=== PATIENT | male | born 1970 | race Caucasian/White ===

== ENCOUNTER 2016-12-23 08:43 | Emergency (ER) | payer OTHER ==
[~2016-12-23] VITALS: Ht 185.4 cm; Wt 79.5 kg
[2016-12-23 08:45] VITALS: BP 116/76; PULSE 95; RESP 14; O2SAT 94
[2016-12-23] MEDS ORDERED: ALBU8.5H2 INHALATION (09:12)
[2016-12-23] MEDS ORDERED: METH10OR11 PO (09:12)
--- NOTE | 2016-12-23 09:15 | ED.REPORT ---
HPI-General Illness Date of Service Dec 23, 2016 ED Provider: Jose Ramon Lord MD Pt is a 46 y/o male presenting to the ED c/o intermittent nausea and vomiting onset 2 weeks ago. He states he experienced a few days of nausea and vomiting about 2 weeks ago which self resolved and began vomiting again this morning. He has vomited twice today. Pt denies abdominal pain, fever. No PCP. Nursing Notes Stated Complaint: FEELING BAD Chief Complaint: General Complaint Nursing Notes Reviewed: Yes Allergies: Coded Allergies: No Known Allergies (Verified Allergy, Mild, 09/19/04) Scheduled Albuterol HFA (Proair HFA) 8.5 Gm Hfa.aer.ad 2 PUFFS INHALATION Q4H Methadone (Methadone) 10 Mg/1 Ml Oral.conc 135 MG PO DAILY General Time Seen by MD: 09:12 Chief Complaint Vomiting Hx Obtained From: Patient Arrived By: Walk-in Sudden in Onset?: No Onset Occurred: More than a week ago... 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 Physical Exam Vital Signs Vital Signs Date Time Temp Pulse Resp B/P Pulse Ox O2 Delivery O2 Flow Rate FiO2 12/23/16 08:45 36.3 95 14 116/76 94 Initial VS: Reviewed, Vital signs normal Head / Eyes: Atraumatic, Normocephalic, PERRL ENT: Mucous membranes moist, Conjunctiva normal, No scleral icterus Neck: Supple, Full range of motion Respiratory: No respiratory distress Cardiovascular: Intact distal pulses Extremities: Vascular intact, Neuro intact, No swelling, No tenderness Skin: Warm, Dry, No cyanosis Neurologic: Alert, Oriented, Nonfocal Psychiatric: Mood/affect normal, Behavior normal, Normal thought content General/Constitutional: Awake, Alert, No acute distress, Well appearing, Cooperative, Not toxic appearing Re-Eval/Medical Decision Time of Eval: 09:58 Re-Evaluation/Progress Note: The patient decided that he needed to leave prior to labs being drawn because he did not want to miss his methadone appointment. He said he will come back later. He is leaving AMA. Counseled Regarding: Diagnosis, Lab results, Need for follow-up, When/why to return to ED Discharge & Departure Primary Impression: Nausea and vomiting Vomiting type: unspecified Vomiting Intractability: unspecified Qualified Code: R11.2 - Nausea with vomiting, unspecified Disposition: AGAINST MEDICAL ADVICE Discharge Condition All VS Reviewed: Yes Condition: Stable Referrals: NOPCP (PCP) Scribe Attestation Portions of this note were transcribed by Yomi Evans. I, Dr. Lord personally performed the history, physical exam and medical decision-making; I reviewed and confirmed the accuracy of the information in the transcribed note. Signed by Kya Christianson, 12/23/16 - 1000 Jose Ramon Lord MD Dec 23, 2016 09:14 YOMI EVANS Dec 23, 2016 09:39
== END 2016-12-23 10:02 | disposition left against medical advice (07) ==
LOC: SED 08:43
DX: R11.2 Nausea with vomiting, unspecified (principal); J45.909 Unspecified asthma, uncomplicated; F17.200 Nicotine dependence, unspecified, uncomplicated